=== PATIENT | female | born 1980 ===

== ENCOUNTER 2020-08-24 18:42 | Emergency (ER) | payer BC ==
[2020-08-24] MEDS ORDERED: Ketorolac 30 MG/ML SDV IVPUSH ONE (19:08)
[2020-08-24] MEDS ORDERED: Ondansetron 4 MG/2 ML SDV IVPUSH ONE (19:08)
--- NOTE | 2020-08-24 19:12 | EDM.PDOC ---
ED HPI GENERAL MEDICAL PROBLEM - General Chief Complaint: Headache Stated Complaint: HEAD HURTS Time Seen by Provider: 08/24/20 19:09 Source of Information: Reports: Patient History Limitations: Reports: No Limitations - History of Present Illness INITIAL COMMENTS - FREE TEXT/NARRATIVE: Rissa complaints for a massive WILKINSON since she work up this afternoon,of sudden onset.It is the worse headache of her life. Associated with light sensitivity and nausea. She denies fever and gives no significant h/o migraine headaches. headache Pain Score (Numeric/FACES): 10 - Related Data Allergies Allergy/AdvReac Type Severity Reaction Status Date / Time No Known Allergies Allergy Verified 08/24/20 18:54 Home Meds: Home Meds LORazepam [Ativan] 0.5 mg PO ASDIRECTED 08/24/20 [History] Thyroid [[place] Thyroid] 60 mg PO DAILY 08/24/20 [History] clomiPHENE citrate [Clomiphene Citrate] 50 mg PO DAILY 08/24/20 [History] estradioL [Estradiol] 2 mg PO DAILY 08/24/20 [History] ED ROS GENERAL - Review of Systems Review Of Systems: Comprehensive ROS is negative, except as noted in HPI. - Physical Exam Exam: See Below Exam Limited By: No Limitations General Appearance: Alert, Other (Tearful) Ears: Normal External Exam Throat/Mouth: Normal Inspection Head Exam: Atraumatic, Normocephalic Neck: Normal Inspection, Supple Respiratory/Chest: No Respiratory Distress Cardiovascular: Normal Peripheral Pulses, Regular Rate, Rhythm Course - Vital Signs Last Recorded V/S: Last Vital Signs Temp 98 F 08/24/20 18:55 Pulse 75 08/24/20 18:55 Resp 24 H 08/24/20 18:55 BP 108/60 08/24/20 18:55 Pulse Ox 100 08/24/20 18:55 - Orders/Labs/Meds Orders: Active Orders 24 hr Category Date Time Status Head wo Cont [CT] Stat Exams 08/24/20 19:08 Ordered Sodium Chloride 0.9% [Normal Saline] 1,000 ml Med 08/24/20 19:15 Active IV ASDIRECTED Medication Orders Sodium Chloride (Normal Saline) 1,000 mls @ 999 mls/hr IV ASDIRECTED LORETA Last Admin: 08/24/20 19:22 Dose: 999 mls/hr Documented by: GISEL Labs: Laboratory Tests 08/24/20 08/24/20 Range/Units 19:25 19:25 WBC 9.1 (3.0-10.3) x10-3/uL RBC 4.50 (3.60-5.20) x10(6)uL Hgb 13.5 (11.4-15.5) g/dL Hct 40.1 (34.2-48.2) % MCV 89.1 (76.7-100.5) fL MCH 30.1 (23.9-33.9) pg MCHC 33.7 (31.9-34.8) g/dL RDW 13.0 (12.3-16.5) % Plt Count 236 (151-488) x10(3)uL MPV 8.1 (7.1-12.4) fL Neut % (Auto) 78.1 H (30.8-76.2) % Lymph % (Auto) 13.3 L (18.4-52.1) % Butler % (Auto) 6.9 (4.4-15.7) % Eos % (Auto) 1.4 (0.6-8.1) % Baso % (Auto) 0.3 (0.2-1.5) % Neut # (Auto) 7.1 H (1.5-6.3) x10-3/uL Lymph # (Auto) 1.2 (1.0-4.4) x10-3/uL Butler # (Auto) 0.6 (0.3-1.0) x10-3/uL Eos # (Auto) 0.1 (0.0-0.8) x10-3/uL Baso # (Auto) 0.0 (0.0-0.1) x10-3/uL Sodium 143 (135-145) mmol/L Potassium 3.7 (3.5-5.3) mmol/L Chloride 108 (100-110) mmol/L Carbon Dioxide 27 (21-32) mmol/L BUN 19 H (7-18) mg/dL Creatinine 1.0 (0.55-1.02) mg/dL Est Cr Clr Drug Dosing TNP Estimated GFR (MDRD) > 60 (>60) BUN/Creatinine Ratio 19.0 (9-20) Glucose 103 (80-116) mg/dL Calcium 7.9 L (8.6-10.2) mg/dL Meds: Medications Generic Name Dose Route Start Last Admin Trade Name Colleen PRN Reason Stop Dose Admin Sodium Chloride 1,000 mls @ 999 mls/hr 08/24/20 19:15 08/24/20 19:22 Normal Saline IV 999 mls/hr ASDIRECTED LORETA Administration Discontinued Medications Generic Name Dose Route Start Last Admin Trade Name Colleen PRN Reason Stop Dose Admin Diphenhydramine HCl 50 mg 08/24/20 19:46 08/24/20 19:55 Diphenhydramine 50 Mg/Ml Sdv IVPUSH 08/24/20 19:47 50 mg ONETIME ONE Administration Ketorolac Tromethamine 30 mg 08/24/20 19:08 08/24/20 19:16 Ketorolac 30 Mg/Ml Sdv IVPUSH 08/24/20 19:09 30 mg ONETIME ONE Administration Ondansetron HCl 8 mg 08/24/20 19:08 08/24/20 19:16 Ondansetron 4 Mg/2 Ml Sdv IVPUSH 08/24/20 19:09 8 mg ONETIME ONE Administration Departure - Departure Time of Disposition: 20:46 Disposition: Home, Self-Care 01 Condition: Good Clinical Impression: Headache Qualifiers: Headache type: unspecified - Discharge Information Instructions: Dehydration, Adult, [id number] Forms: ED Department Discharge Additional Instructions: please drink enough water daily follow up with your primary care doctor as needed Sepsis Event Note (ED) - Focused Exam Vital Signs: Vital Signs Temp Pulse Resp BP Pulse Ox 08/24/20 18:55 98 F 75 24 H 108/60 100 - Problem List & Annotations (1) Headache SNOMED Code(s): 48397009 Code(s): R51.9 - HEADACHE, UNSPECIFIED Status: Acute Qualifiers: Headache type: unspecified (2) Dehydration SNOMED Code(s): 11587617 Code(s): E86.0 - DEHYDRATION Status: Acute - Problem List Review Problem List Initiated/Reviewed/Updated: Yes - My Orders Last 24 Hours: My Active Orders 08/24/20 19:08 Head wo Cont [CT] Stat 08/24/20 19:15 Sodium Chloride 0.9% [Normal Saline] 1,000 ml IV ASDIRECTED - Assessment/Plan Last 24 Hours: My Active Orders 08/24/20 19:08 Head wo Cont [CT] Stat 08/24/20 19:15 Sodium Chloride 0.9% [Normal Saline] 1,000 ml IV ASDIRECTED Plan: IV access obtained,IV Toradol and Zofran given.Labs showed mild dehydration picture. I was not able to do CT head due to hardware. In any case,she improved after the above regimen. DC home
[2020-08-24] MEDS ORDERED: Sodium Chloride 0.9% 1,000 ML IV SCH (19:15)
[2020-08-24] MEDS ORDERED: diphenhydrAMINE 50 MG/ML SDV IVPUSH ONE (19:46)
== END 2020-08-24 20:25 | disposition home or self-care (01) ==
LOC: FB.ED 18:42
DX: R51.9 Headache, unspecified (principal)
CPT/HCPCS: 36415; 80048; 85025; 96374; 96375; 99284; 99284-25; J1200; J1885; J2405; J7030